=== PATIENT | female | born 1965 | race Caucasian/White ===

== ENCOUNTER 2019-01-23 15:11 | Emergency (ER) | payer OTHER ==
[~2019-01-23] VITALS: Ht 162.6 cm; Wt 59.0 kg
[~2019-01-23 15:11] MED LIST: PARO10TA3 PO; VALA1000 PO
[2019-01-23 15:15] VITALS: BP 136/87
--- NOTE | 2019-01-23 15:15 | NUR ---
PT BI [facility] WITH SA AFTER SELF TYING TWINE AROUND HER NECK TO THE POINT IT CAUSED SOME ABRASIONS TO HER NECK. AFTER IT STARTED TO HURT, PT STOPPED AND CALLED 911. THIS WAS PRECIPITATED BY ARGUMENT WITH . PT DENIES SI NOW AND STATES "I HAD A GOOD CRY." PT PLACED IN SECURE ROOM AND GARAGE DOORS ARE DOWN. PT [place] PLACED ON LEGAL HOLD BY [employer]. ALL BELONGINGS PLACED IN SECURITY LOCKER.
--- NOTE | 2019-01-23 15:55 | NUR ---
REPORT TO ARIEL GRIGGS.
[2019-01-23] MEDS ORDERED: DIAZ10TA PO (16:03)
[2019-01-23 16:08] LABS: AMPHETAMINE SCREEN, URINE Negative (Negative); BARBITURATE SCREEN, URINE Negative (Negative); BENZODIAZEPINE SCREEN, URINE Positive (Negative); CANNABINOID SCREEN, URINE Negative (Negative); COCAINE SCREEN, URINE Negative (Negative); METHADONE SCREEN, URINE Negative (Negative); OPIATE SCREEN, URINE Negative (Negative)
[2019-01-23 16:15] LABS: BASOPHILS # (AUTO) 0.03 x10^3/uL (0-0.1); BASOPHILS % (AUTO) 1 % (0-1); EOSINOPHILS # (AUTO) 0.11 x10^3/uL (0-0.4); EOSINOPHILS % (AUTO) 2 % (1-7); LYMPHOCYTES # (AUTO) 1.08 x10^3/uL (1-3.4); LYMPHOCYTES % (AUTO) 17 % (22-44); MD NO; MEAN CORPUSCULAR HEMOGLOBIN 31.6 pg (27.0-34.8); MEAN CORPUSCULAR HGB CONC 33.4 g/dL (32.4-35.8); MEAN CORPUSCULAR VOLUME 94.6 fL (80-100); MEAN PLATELET VOLUME 7.6 fL (7.4-10.4); MONOCYTES # (AUTO) 0.46 x10^3/uL (0.2-0.8); MONOCYTES % (AUTO) 7 % (2-9); NEUTROPHILS # (AUTO) 4.77 x10^3/uL (1.8-6.8); NEUTROPHILS % (AUTO) 74 % (42-75); PLATELET COUNT 301 x10^3/uL (130-400); RED BLOOD COUNT 4.47 x10^6/uL (3.82-5.3); RED CELL DISTRIBUTION WIDTH 12.6 % (9.6-15.2)
[2019-01-23 16:19] LABS: ALBUMIN 4.5 g/dL (3.4-5.0); ANION GAP 6 mmol/L (5-15); CALCIUM 9.3 mg/dL (8.5-10.1); CHLORIDE 107 mmol/L (98-107); CREATININE 0.98 mg/dL (0.55-1.02)
[2019-01-23 16:24] LABS: ACETAMINOPHEN < 2 mcg/mL (10-30); SALICYLATE LEVEL < 1.7 mg/dL (2.8-20.0)
--- NOTE | 2019-01-23 17:31 | NUR ---
Pt resting on gurney with all SI precautions in place. Pt's father at bedside per pt's verbal consent. NADN. No needs expressed at this time.
--- NOTE | 2019-01-23 17:56 | NUR ---
FAMILY AT BS.
== END 2019-01-23 17:57 | disposition home or self-care (01) ==
LOC: ED 16:36
DX: T14.91XA Suicide attempt, initial encounter (principal); F43.10 Post-traumatic stress disorder, unspecified; Z87.891 Personal history of nicotine dependence; X83.8XXA Intentional self-harm by other specified means, initial encounter; Y93.89 Activity, other specified; Y92.89 Other specified places as the place of occurrence of the external cause; Y99.8 Other external cause status
CPT/HCPCS: 36415; 80048; 80307; 80329; 82040; 85025; 99284; G0480